=== PATIENT | male | born 1960 | race Caucasian/White ===

== ENCOUNTER → 2016-10-13 | Outpatient (CLI) | payer MEDICARE ==
[2016-10-13 17:08] LABS: HEMOGLOBIN 16.1 g/dL (14.1-18.0); LYMPH # 2.1 K/mm3 (0.7-4.5); LYMPH % 27.7 % (10-50)
[2016-10-13 18:44] LABS: URINE BILIRUBIN - DIPSTICK NEGATIVE (NEG); URINE BLOOD NEGATIVE (NEG)
[2016-10-13 18:47] LABS: BUN 20 mg/dL (7-18)
[2016-10-13 19:21] LABS: GFR (ESTIMATED) 77 ML/MIN (>60)
[2016-10-13 19:59] LABS: URINE SQUAMOUS CELLS OCC #/hpf (OCC)
== END ==
LOC: LAB 15:40
PROVIDERS: Surgery
DX: R10.11 Right upper quadrant pain (principal)